=== PATIENT | female | born 1985 | race Caucasian/White ===

== ENCOUNTER 2017-08-31 05:24 | Inpatient (IN) | payer OTHER ==
[2017-08-31] MEDS ORDERED: METHYLERGONOVINE 0.2 MG INJ IM ×2 (06:00→13:00)
[2017-08-31] MEDS ORDERED: CEFAZOLIN 2 GM/50 ML (PMX) 50 ML IV (06:00)
[2017-08-31] MEDS ORDERED: OXYTOCIN 30 UNITS/LR 500 ML IV ×2 (06:00→13:00)
[2017-08-31] MEDS ORDERED: MISOPROSTOL 200 MCG TAB PR ×2 (06:00→13:00)
[2017-08-31] MEDS ORDERED: CARBOPROST 250 MCG INJ IM ×2 (06:00→13:00)
[2017-08-31 06:16] LABS: ADD MAN DIFF? NO
[2017-08-31 06:17] LABS: BASOPHILS % 0.3 % (0.0-2.0); EOSINOPHILS # 0.1 10^3/ul (0.0-0.5); EOSINOPHILS % 0.8 % (0.0-7.0); HEMATOCRIT 32.9 % (37.0-47.0); LYMPHOCYTES # 2.6 10^3/ul (0.8-2.9); LYMPHOCYTES % 32.8 % (15.0-51.0); MEAN CORPUSCULAR HEMOGLOBIN 27.6 pg (29.0-33.0); MEAN CORPUSCULAR HGB CONC 33.4 g/dl (32.0-37.0); MEAN CORPUSCULAR VOLUME 82.5 fl (82.0-101.0); MEAN PLATELET VOLUME 11.3 fl (7.4-10.4); MONOCYTE # 0.7 10^3/ul (0.3-0.9); MONOCYTES % 8.4 % (0.0-11.0); NEUTROPHIL # 4.6 10^3/ul (1.6-7.5); NEUTROPHILS % 57.3 % (39.0-77.0); PLATELET COUNT 183 10^3/UL (140-415); RED BLOOD COUNT 3.99 10^6/ul (4.20-5.40); RED CELL DISTRIBUTION WIDTH 13.3 % (11.5-14.5)
[2017-08-31 06:42] LABS: INR 0.93; PARTIAL THROMBOPLASTIN TIME 26.4 Sec (25.0-35.0); PROTIME 12.6 Sec (11.9-14.9)
[2017-08-31] MEDS ORDERED: OXYTOCIN 30 UNITS/LR 500 ML BAG IV (07:00)
[2017-08-31] MEDS: ONDANSETRON 4 MG INJ IV ×2 (07:20→13:24)
[2017-08-31] MEDS: CITRIC ACID/SODIUM CITRATE 15 ML CUP PO (07:20)
[2017-08-31] MEDS ORDERED: ONDANSETRON 4 MG INJ (07:21)
[2017-08-31] MEDS ORDERED: CITRIC ACID/SODIUM CITRATE 15 ML CUP (07:21)
[2017-08-31 07:26] LABS: HEPATITIS B SURFACE ANTIGEN NEGATIVE (NEGATIVE)
[2017-08-31] MEDS ORDERED: morphine SULFATE/PF (10 MG/10 ML) INJ (07:28)
[2017-08-31] MEDS ORDERED: METOCLOPRAMIDE 10 MG INJ (07:28)
[2017-08-31] MEDS ORDERED: OXYTOCIN 10 UNIT INJ (07:28)
[2017-08-31] MEDS ORDERED: DEXAMETHASONE 4 MG/ML 1 ML INJ (07:28)
[2017-08-31] MEDS ORDERED: PHENYLephrine (100 MCG/ML) 5ML SYG ×2 (07:28→08:42)
[2017-08-31] MEDS ORDERED: KETOROLAC 30 MG INJ (07:28)
[2017-08-31] MEDS ORDERED: DIPHENHYDRAMINE 50 MG INJ IV (08:00)
[2017-08-31] MEDS ORDERED: HYDROmorphONE 0.5 MG/0.5 ML SYG IV ×2 (08:00)
[2017-08-31] MEDS ORDERED: NALOXONE (0.4 MG/ML) INJ IV (08:00)
[2017-08-31] MEDS ORDERED: morphine 4 MG/ML VIAL IV (08:00)
[2017-08-31] MEDS ORDERED: HYDROCODONE/APAP (5/325) TAB PO ×3 (08:00→13:00)
[2017-08-31] MEDS ORDERED: morphine 2 MG INJ IV (08:00)
[2017-08-31] MEDS ORDERED: KETOROLAC 30 MG INJ IV (08:00)
[2017-08-31] MEDS ORDERED: NALBUPHINE HCL (10 MG/1 ML) INJ IV (08:00)
[2017-08-31] MEDS ORDERED: ACETAMINOPHEN 500 MG TAB PO (08:00)
[2017-08-31] MEDS: OXYTOCIN 30 UNITS/LR 500 ML IV ×4 (08:56→16:50)
[2017-08-31] MEDS ORDERED: LANOLIN 7 GM TUBE TOP (13:00)
[2017-08-31] MEDS ORDERED: OXYCODONE/ACETAMINOPHEN (5/325) TAB PO ×2 (13:00)
[2017-08-31] MEDS: LACTATED RINGER'S 500 ML IV (13:22)
[2017-08-31 15:35] LABS: RAPID PLASMA REAGIN NONREACTIVE (NR)
[2017-08-31] MEDS: CEFAZOLIN 1 GM/50 ML (PMX) 50 ML IVPB (16:16)
[2017-08-31] MEDS: LACTATED RINGER'S 1,000 ML IV (17:49)
[2017-08-31] MEDS: SENNA/DOCUSATE NA (8.6MG/50MG) TAB PO (21:00)
[2017-09-01] MEDS: LACTATED RINGER'S 1,000 ML IV ×3 (00:49→16:30)
[2017-09-01] MEDS: OXYTOCIN 30 UNITS/LR 500 ML IV ×7 (03:47→21:23)
[2017-09-01 08:38] LABS: ADD MAN DIFF? NO
[2017-09-01 08:47] LABS: BASOPHILS % 0.2 % (0.0-2.0); EOSINOPHILS % 0.2 % (0.0-7.0); HEMATOCRIT 26.5 % (37.0-47.0); HEMOGLOBIN 8.8 g/dl (12.0-16.0); LYMPHOCYTES # 2.3 10^3/ul (0.8-2.9); LYMPHOCYTES % 24.5 % (15.0-51.0); MEAN CORPUSCULAR HEMOGLOBIN 27.9 pg (29.0-33.0); MEAN CORPUSCULAR HGB CONC 33.2 g/dl (32.0-37.0); MEAN CORPUSCULAR VOLUME 84.1 fl (82.0-101.0); MEAN PLATELET VOLUME 11.5 fl (7.4-10.4); MONOCYTE # 0.8 10^3/ul (0.3-0.9); MONOCYTES % 8.2 % (0.0-11.0); NEUTROPHIL # 6.2 10^3/ul (1.6-7.5); NEUTROPHILS % 66.5 % (39.0-77.0); PLATELET COUNT 141 10^3/UL (140-415); RED BLOOD COUNT 3.15 10^6/ul (4.20-5.40); RED CELL DISTRIBUTION WIDTH 13.8 % (11.5-14.5)
[2017-09-01 08:47] LABS: WHITE BLOOD COUNT 9.4 10^3/ul (4.8-10.8)
[2017-09-01] MEDS: SENNA/DOCUSATE NA (8.6MG/50MG) TAB PO ×2 (09:10→21:00)
[2017-09-01] MEDS: IBUPROFEN 600 MG TAB PO ×3 (12:17→23:59)
[2017-09-02] MEDS: LACTATED RINGER'S 1,000 ML IV (00:30)
[2017-09-02] MEDS: OXYTOCIN 30 UNITS/LR 500 ML IV ×2 (00:50→04:50)
[2017-09-02] MEDS: IBUPROFEN 600 MG TAB PO ×4 (07:16→23:49)
[2017-09-02] MEDS: SENNA/DOCUSATE NA (8.6MG/50MG) TAB PO ×2 (08:42→21:23)
[2017-09-03] MEDS: IBUPROFEN 600 MG TAB PO ×2 (05:55→12:18)
[2017-09-03] MEDS: DIPHTH/TET/ACEL PERTUSS (ADULT) 0.5 ML VIAL IM* (09:00)
[2017-09-03] MEDS: SENNA/DOCUSATE NA (8.6MG/50MG) TAB PO (09:14)
== END 2017-09-03 15:06 | disposition home or self-care (01) | DRG 766 ==
LOC: L-D 05:24 → PP1 12:30
PROVIDERS: Obstetrics & Gynecology
PROC: 10D00Z1 Extraction of Products of Conception, Low, Open Approach (ICD-10-PCS; principal; 2017-08-31 07:30)
DX: O34.219 Maternal care for unspecified type scar from previous cesarean delivery (principal); Z37.0 Single live birth; Z3A.39 39 weeks gestation of pregnancy
CPT/HCPCS: 85025; 85610; 85730; 86592; 86850; 86900; 86901; 87340; 90715; 99464